=== PATIENT | male | born 1945 | race Caucasian/White ===

== ENCOUNTER 2017-03-29 06:03 | Inpatient (IN) ==
[2017-03-29] MEDS ORDERED: SODIUM CHLORIDE 0.9% 1,000 ML IV STA ×2 (06:15→07:09)
[2017-03-29] MEDS ORDERED: ONDANSETRON 4 MG/2 ML VIAL IV STA (06:15)
[2017-03-29] MEDS ORDERED: ONDANSETRON 4 MG/2 ML VIAL ONE (06:22)
[2017-03-29 06:33] LABS: Basophils % 0.4 % (0.0-0.8); Eosinophils # 0.1 10*3/uL (0.0-0.87); Eosinophils % 0.9 % (0.00-10.9); Hematocrit 52.3 VOL% (42.0-52.0); Hemoglobin 17.5 GM/DL (14.0-18.0); Immature Granulocytes % 0.5 %; Immature Granulocytes Absolute 0.05 #; Lymphocytes # 2.7 10*3/uL (1.4-4.0); Lymphocytes % 26.7 % (21.2-54.2); Mean Corpuscular HGB Conc 33.5 GM/DL (32-36); Mean Corpuscular Hemoglobin 32 PG (27-34); Mean Corpuscular Volume 95.8 FL (87-102); Mean Platelet Volume 10.2 FL (9.6-12.0); Monocytes # 0.6 10*3/uL (0.11-0.8); Monocytes % 5.7 % (1.7-12.7); Neutrophils # 6.6 10*3/uL (1.4-7.4); Neutrophils % 65.8 % (38.7-73.9); Platelet Count 349 T/CUMM (130-400); Red Blood Count 5.46 MC/CUMM (3.8-5.5); Red Cell Distribution Width 12.8 % (9.3-17.3); White Blood Count 10.1 T/CUMM (4-12)
[2017-03-29 06:46] LABS: Albumin 3.5 G/DL (3.4-5.0); Bilirubin,Total 0.4 MG/DL (0.2-1.0); Calcium 9.1 MG/DL (8.5-10.1); Total Protein 6.6 G/DL (6.4-8.3)
[2017-03-29 06:47] LABS: Osmolality,Calculated 285.3 MOS/KG (273-304); Potassium 4.3 MMOL/L (3.5-5.1)
[2017-03-29 07:04] LABS: Lactic Acid 2.4 MMOL/L (0.4-2.0)
[2017-03-29] MEDS ORDERED: LEVOFLOXACIN INJ 750 MG in PREMIX 1 EACH IV STA (07:25)
--- NOTE | 2017-03-29 07:28 | CT Report ---
CT abdomen pelvis w con Indication: Generalized abdominal pain. CT ABDOMEN AND PELVIS WITH CONTRAST DLP: 1262 mGy*cm. One or more of the following dose reduction techniques was used: Automated exposure control, adjustment of the mA and/or kV according the patient size, or use of iterative reconstruction techniques. Comparison: 07/03/2014 Technique: Axial CT images of the abdomen and pelvis were obtained with IV contrast; Omnipaque 350, 100 cc. Oral contrast was not administered. Abdomen: Normal heart size. Bibasilar atelectasis and elevation right hemidiaphragm. Liver, gallbladder and adrenal glands are unremarkable. Pancreas is mostly fatty replaced. Calcified granuloma in the spleen. Spleen is otherwise unremarkable. Cortical defects of both kidneys are present, likely small cysts. No solid masses shown. No retroperitoneal lymphadenopathy. Almost all of the small bowel is slightly edematous appearing with scattered areas of fluid and stool evident. The colon is relatively decompressed but fluid-filled. There is a trace amount of mesenteric edema throughout the abdomen as well as tiny amount of fluid along the left paracolic gutter and in the pelvis. Pelvis: Urinary bladder is contracted. Prostate is absent. Rectosigmoid colon is relatively decompressed but fluid-filled. No lymphadenopathy. No free air. Vascular calcifications noted. No new bone lesions. Impression: 1. Gastroenteritis with edematous appearing small bowel, nondilated, and fluid-filled colon. Minimal reactive inflammation of the mesentery and a trace amount of ascites left pericolic gutter tracking into the pelvis. 2. Stable appearing bilateral renal cysts. PROCEDURE INTERPRETED AT [facility] DEPARTMENT OF RADIOLOGY Final Report Signed by: Juan Merritt M.D.
[2017-03-29] MEDS ORDERED: LEVOFLOXACIN INJ 150 ML IV ONE (07:31)
--- NOTE | 2017-03-29 08:01 | Emergency Department Note ---
Jonathan Steward Brittany, am scribing for, and in the presence of, Jaren Thomas MD 06:17. William Steward Doug C, MD, personally performed the services described in this documentation, ascribed by Suzanne Castillo in my presence, and it is both accurate and complete . Arrival - Arrival Chief Complaint: Nausea/Vomiting/Diarrhea Stated Complaint: abd pain ED Nursing Triage Note: C/O N/V/D/Generalized abd pain. Onset upon waking this morning. Pt denies being around anyone with the same symptoms. Pt was given 2.5mg compazine by EMS with relief of nausea Mode of Arrival: Stretcher Limitations: No Limitations Source: Patient, RN Notes Reviewed Time Seen by Provider: 03/29/17 06:10 - History of Present Illness HPI Narrative: Patient 71-year-old white male presents emergency room complaining of sudden onset of abdominal pain, diarrhea, nausea with vomiting and diaphoresis early this morning. Patient denies any ill contacts. Has not had any fever or chills. Has not had any prior problem with his abdomen. He denies any prior abdominal surgery. Patient states she has not had any blood in his stool or in his vomitus. He told me he became near syncopal after this protracted bout of diarrhea. He states is feeling much better by the time he arrived to the emergency room. Onset (ago): hour(s) (2) Consistency: constant Severity: moderate Severity scale (1-10): 6 Quality: other ("shooting, needlelike pains") Allergies/Adverse Reactions: Allergies Allergy/AdvReac Type Severity Reaction Status Date / Time No Known Allergies Allergy Unverified 03/29/17 06:06 Home Medications: Home Medications Medication Instructions Recorded Confirmed Type Aspirin [Ecotrin] 81 mg PO BEDTIME 11/20/16 03/29/17 History Lisinopril 20 mg PO BEDTIME 11/20/16 03/29/17 History Omeprazole 20 mg PO BEDTIME 11/20/16 03/29/17 History Pravastatin [Pravachol] 1 tablet PO BEDTIME 11/20/16 03/29/17 History Review of System - Review of System 12 point system: reviewed and no additional remarkable complaints except as stated - Review of System Constitutional: Present: diaphoresis. Absent: chills, fever Eyes: Absent: vision change Head/Ears/Nose/Throat: Absent: nasal drainage, sore throat Respiratory: Absent: respiratory distress Cardiovascular: Present: syncope (near syncope). Absent: chest pain, palpitations Gastrointestinal: Present: as per HPI, abdominal pain, nausea, vomiting, diarrhea. Absent: hematemesis, melena, hematochezia Genitourinary male: Absent: urgency, dysuria, frequency Musculoskeletal: Absent: arm pain, back pain, leg pain, neck pain Skin: Absent: rash Neurological: Absent: headache Psychiatric: Absent: anxiety, depression Medical,Surgical,& Family Hx - Medical History Cardio: History of: Hypertension, Cardiovascular Problems Comment Only: Cardiac Dysrhythmia (DR SKELTON NO HEART MED) Psychological: No history of: Psychiatric Problems Neurology: No history of: Neurological Problems Endocrine: History of: Dyslipidemia Rheumatology: No history of;: Rheumatological Problems Respiratory: No history of: Respiratory Problems Genitourinary: History of: Bladder Problem, Prostate Problems (CA), Genitourinary Cancer Gastrointestinal: History of: GERD Musculoskeletal: No history of: Musculoskeletal Problems Reproductive: No histroy: Reproductive Problems - Surgical History Cardiac Surgeries: Patient Denies: Cardiac Surgery Thoracic Surgeries: Patient denies;: Kidney (Renal Surgery) HEENT Surgeries: Surgical HX of: Tonsilectomy & Adenoidectomy Abdominal Surgeries: Surgical HX of: Abdominal Surgery, Colonoscopy, EGD Reproductive Surgeries: Surgical HX of;: Cystoscopy, Genitourinary Surgery, Prostate Surgery (REMOVAL RADIATION) Orthopedic Surgeries: Patient denies;: Orthopedic Surgery - Family History Family History: Reports;: Family Heart Disease (DAD), Family Hypertension (DAD) - Social History Smoking Status: Never smoker Frequency of Alcohol Use: None Type of Drug Use: None Exam Vital Signs: Vital Signs Temperature 97.8 F 03/29/17 06:03 Pulse Rate 51 L 03/29/17 07:30 Respiratory Rate 18 03/29/17 07:30 Blood Pressure 116/60 03/29/17 07:30 O2 Sat by Pulse Oximetry 100 03/29/17 07:30 - General General appearance: alert, in no apparent distress - Head Head exam: Present: atraumatic, normocephalic, normal inspection - Eye Eye exam: Present: normal appearance, PERRL, EOMI - ENT ENT exam: Present: normal exam, normal oropharynx - Neck Neck exam: Present: normal inspection, full ROM, trachea midline - Chest Chest inspection: Present: normal inspection, symmetric chest wall rise - Respiratory Respiratory exam: Present: normal lung sounds bilaterally. Absent: rales, rhonchi, wheezes - Cardiovascular Cardiovascular exam: Present: regular rate, normal rhythm, normal heart sounds. Absent: murmur, rubs, gallop - Abdominal Exam Abdominal exam: Present: soft, tenderness (mild diffuse direct tenderness to palpation), normal bowel sounds. Absent: distention - Extremities Exam Extremities exam: Present: normal inspection - Back Exam Back exam: Present: normal inspection - Neurological Exam Neurological exam: Present: alert, oriented X3, CN II-XII intact. Absent: motor sensory deficit - Psychiatric Psychiatric exam: Present: normal affect, normal mood - Skin Skin exam: Present: warm, dry, intact Course Course Narrative: Patient's clinical presentation, laboratory radiograph findings were discussed with Dr. Vlad LEON who will see the patient emergency room and determine final disposition. Cultures and IV antibiotics were begun. Results - Labs CBC & BMP: 03/29/17 06:09 03/29/17 06:09 Lab Results: I have reviewed the patients labs Labs: Laboratory Tests 03/29/17 06:09 WBC 10.1 RBC 5.46 Hgb 17.5 Hct 52.3 H MCV 95.8 MCH 32 MCHC 33.5 RDW 12.8 Plt Count 349 MPV 10.2 Neut % (Auto) 65.8 Lymph % (Auto) 26.7 [place] % (Auto) 5.7 Eos % (Auto) 0.9 Baso % (Auto) 0.4 Neut # (Auto) 6.6 Lymph # (Auto) 2.7 [place] # (Auto) 0.6 Eos # (Auto) 0.1 Baso # (Auto) 0.0 Immature Gran % 0.5 Nucleated RBC % 0.0 Immature Gran # 0.05 Nucleated RBCs # 0.00 Laboratory Tests 03/29/17 06:09 C-Reactive Protein 0.41 H Laboratory Tests 03/29/17 03/29/17 06:09 06:09 Sodium 141 Potassium 4.3 Chloride 106 Carbon Dioxide 26 Anion Gap 13.3 BUN 19 H Creatinine 1.30 GFR Calculation 65 BUN/Creatinine Ratio 14.00 Glucose 158 H Calculated Osmolality 285.3 Lactic Acid 2.4 H Calcium 9.1 Total Bilirubin 0.40 AST 23 ALT 41 Alkaline Phosphatase 56 Total Protein 6.6 Albumin 3.5 Globulin 3.1 Albumin/Globulin Ratio 1.1 Lipase 94.0 - Diagnostic Findings Procedure: CT Abdomen and Pelvis: report reviewed by me (1. Gastroenteritis with edematous appearing small bowel, nondilated, and fluid-filled colon. Minimal reactive inflammation of the mesentery and a trace amount of ascites left pericolic gutter tracking into the pelvis. 2. Stable appearing renal cysts. ) Disposition Clinical Impression: Gastroenteritis Case discussed with: patient, patient's family Disposition: Still a Patient Condition: Stable Time of Disposition: 08:00
--- NOTE | 2017-03-29 08:13 | EKG Report ---
Stationary ECG Study [facility] ER Test Date: 03/29/2017 6:39:14 AM Pat Name: NISHANT MATHIS Department: Room: Gender: M Redipper: : 1945 Requested by: Santos Chou Order Number: [id number] Reading MD: FRANSISCO CHATMAN Intervals [place] Rate: 49 P: 52 DC: 170 QRS: 80 QRSD: 86 T: 9 QT: 454 QTc: 424 Interpretive Statements SINUS BRADYCARDIA NONSPECIFIC T-WAVE ABNORMALITY Electronically Signed On 03-29-17 08:17:18 CDT by FRANSISCO CHATMAN [email or web address]
[2017-03-29 08:19] LABS: Apearance,Urine CLEAR (Clear); Bilirubin,Urine Negative (Negative); Blood, Urine Negative (Negative); Glucose,Urine (UA) Negative (Negative); Hyaline Casts,Urine 1 /LPF (0-3); Ketones,Urine Negative (Negative); Mucus,Urine Occasional /LPF (Occasional); Nitrite,Urine Negative (Negative); Protein,Urine Negative; RBC,Urine <1 /HPF (0-4); Squamous Epithelial Cell,Urine Occasional /HPF (0-10); Urine Color Yellow (Yellow); Urine Specific Gravity 1.044 (1.001-1.035); Urine Urobilinogen < 2.0 EU/DL (0.2-1.0); WBC,Urine 1 /HPF (0-6)
[2017-03-29] MEDS ORDERED: ONDANSETRON 4 MG/2 ML VIAL IV PRN (08:54)
[2017-03-29] MEDS ORDERED: MORPHINE 2 MG/1 ML SYRINGE IV PRN (08:54)
--- NOTE | 2017-03-29 10:06 | General Surg History&Physical ---
Assessment and Plan - Time spent with patient Time spent with patient: Greater than 30 minutes (1) Gastroenteritis Status: Acute Assessment and plan: I think this is unlikely to represent a surgical acute abdomen. He seems to be better already. We will treat him with IV antibiotics and fluids and I will consult gastroenterology. He does not know of anything that he ate that could have caused this and has not recently traveled. Current Visit: Yes (2) Lactic acid acidosis Status: Acute Assessment and plan: This was initially elevated. I do not suspect ischemic bowel and his superior mesenteric artery looks wide open on the CT scan. He is also improving. We will follow-up this result which is probably from volume depletion. Current Visit: Yes History of Present Illness Chief complaint: Abdominal pain History of present illness: Mr. Sharma is a 71 year old male Who was awakened during the night with nausea and vomiting and explosive diarrhea. He did not notice his abdominal pain is much until after he had nausea and vomiting. His pain in his abdomen was mild to moderate and in the epigastric region just above the umbilicus. This pain was intermittent but has remained constant at the point that he presented to the emergency department. When he came to the emergency department he was hypotensive and diaphoretic and dizzy. He has received IV fluid and feels much better. He has minimal abdominal pain at this point. His blood pressure has not normalized. He did have an elevated lactic acid level. An abdominal CT scan showed fluid-filled edematous small bowel and colon. Please note that this note is a late entry he and I actually saw the patient a couple of hours ago. Home Medications Medication Instructions Recorded Confirmed Type Aspirin [Ecotrin] 81 mg PO BEDTIME 11/20/16 03/29/17 History Lisinopril 20 mg PO BEDTIME 11/20/16 03/29/17 History Omeprazole 20 mg PO BEDTIME 11/20/16 03/29/17 History Pravastatin [Pravachol] 1 tablet PO BEDTIME 11/20/16 03/29/17 History Allergies Allergy/AdvReac Type Severity Reaction Status Date / Time No Known Allergies Allergy Unverified 03/29/17 06:06 Medical,Surgical,& Family Hx - Medical History Cardio: History of: Hypertension, Cardiovascular Problems Comment Only: Cardiac Dysrhythmia (DR SKELTON NO HEART MED) Psychological: No history of: Psychiatric Problems Neurology: No history of: Neurological Problems Endocrine: History of: Dyslipidemia Rheumatology: No history of;: Rheumatological Problems Respiratory: No history of: Respiratory Problems Genitourinary: History of: Bladder Problem, Prostate Problems (CA), Genitourinary Cancer Gastrointestinal: History of: GERD Musculoskeletal: No history of: Musculoskeletal Problems Reproductive: No histroy: Reproductive Problems - Surgical History Cardiac Surgeries: Patient Denies: Cardiac Surgery Thoracic Surgeries: Patient denies;: Kidney (Renal Surgery) HEENT Surgeries: Surgical HX of: Tonsilectomy & Adenoidectomy Abdominal Surgeries: Surgical HX of: Abdominal Surgery, Colonoscopy, EGD Reproductive Surgeries: Surgical HX of;: Cystoscopy, Genitourinary Surgery, Prostate Surgery (REMOVAL RADIATION) Orthopedic Surgeries: Patient denies;: Orthopedic Surgery - Family History Family History: Reports;: Family Heart Disease (DAD), Family Hypertension (DAD) - Social History Smoking Status: Never smoker Frequency of Alcohol Use: None Type of Drug Use: None Exam - Constitutional Vitals: Period Temp Pulse Resp BP Sys/Sullivan Pulse Ox Last 24 Hr 97.8 F-97.9 F 51-73 16-20 101-124/47-64 95-100 General appearance: no acute distress - Head Head exam: Present: normocephalic - Eye Eye exam: Present: EOMI. Absent: scleral icterus Pupils: Present: VICKY - ENT Mouth exam: Present: normal voice - Neck Neck exam: Present: trachea midline - Respiratory Respiratory exam: Present: clear to auscultation bilaterally. Absent: accessory muscle use - Cardiovascular Cardiovascular exam: Present: RRR - GI/Abdominal GI/Abdominal exam: Present: soft. Absent: distended, guarding, mass, tenderness , rebound - Extremities Exam Extremities exam: Present: full ROM. Absent: edema - Back Exam Back exam: Present: normal inspection - Neurological Exam Neurological exam: Present: alert, oriented X3. Absent: motor sensory deficit Speech: Present: normal - Skin Skin exam: Present: normal color - Constitutional Constitutional: Present: anorexia, chills. Absent: fever(s) - EENT Nose, mouth and throat: Absent: dysphagia, sore throat - Cardiovascular Cardiovascular: Present: diaphoresis. Absent: chest pain at rest, chest pain with activity, dyspnea, dyspnea on exertion, syncope - Respiratory Respiratory: Absent: cough, dyspnea, hemoptysis, dyspnea on exertion - Gastrointestinal Gastrointestinal: Present: abdominal pain, bloating, cramping, diarrhea, nausea , vomiting. Absent: hematemesis, hematochezia, melena, jaundice - Genitourinary Genitourinary: Present: flank pain. Absent: dysuria, hematuria - Musculoskeletal Musculoskeletal: Absent: back pain - Neurological Neurological: Absent: focal weakness, syncope - Endocrine Endocrine: Absent: polyuria Hematologic/Lymphatic: Absent: easy bleeding, easy bruising Results - Labs CBC & BMP: 03/29/17 06:09 03/29/17 06:09 Lab Results: I have reviewed the past 24 hour labs - Diagnostic Findings Procedure: CT Abdomen and Pelvis: image reviewed by me, report reviewed by me
[2017-03-29] MEDS: LEVOFLOXACIN INJ 750 MG in PREMIX 1 EACH IV SCH (10:30)
[2017-03-29] MEDS: DEXTROSE 5% NACL 0.45% 1,000 ML IV SCH ×2 (10:59→19:24)
[2017-03-29] MEDS: PANTOPRAZOLE 40 MG TABLET PO SCH (11:01)
--- NOTE | 2017-03-29 13:11 | Gastrointestinal Consult Note ---
Assessment and Plan (1) Gastroenteritis Status: Acute Assessment and plan: The patient's symptoms seem to be most consistent with a gastroenteritis which is acute. Perhaps this is been brought on by the watermelon that he consumed. It is unclear. We will await any stool studies that can be done in the near future. Supportive care is likely all that is required for this gentleman. I do not believe he is going to require surgery. His white count is not particularly elevated. This may simply be a virus. The patient has had recent colonoscopy/flexible sigmoidoscopy as of 06/2015. He has never been shown to have any polyps but did have some rectal telangiectasias on his last flex sig. The treatment is essentially supportive at this point. We will continue to watch him and I will advance his diet to clear liquids and see how he tolerates this. He may be able to leave tomorrow if his laboratories look all right and he is feeling better and able tolerate clears. Current Visit: Yes (2) Lactic acid acidosis Status: Acute Assessment and plan: I am not sure if the patient developed some element of mesenteric ischemia but this appears to have improved over time. No specific therapy required. Agree with IV fluid therapy Current Visit: Yes (3) Colon cancer screening Status: Acute Assessment and plan: The patient has a maternal grandfather with a history of colon cancer in the patient's father himself had a history of polyps. This puts him in line to have his next colonoscopy done in June 2019. No colonoscopy is needed at this time. Current Visit: Yes History of Present Illness Chief complaint: Gastroenteritis with nausea vomiting and diarrhea History of present illness: Mr. Sharma is a 71 year old male who presents with ingestion of a pizza and watermelon yesterday for supper, his did not have this problem and ate the pizza but not watermelon. He was awakened at 3 AM this morning with explosive diarrhea and severe abdominal pain that started as a pins and needle sensation in the epigastrium and then moved to the periumbilical region with bloating. This was 10 out of 10 in intensity and resulted in some diaphoresis hypotension and dizziness. This was documented in the emergency room. The patient was given fluids. He was noted on admission to have a elevated lactic acid level 2.4, but surprisingly a normal white blood cell count of 10.0. This pain was severe enough to warrant admission under the surgical service for an acute abdomen. This is since greatly dissipated to the point where the patient's pain is about a 6 out of 10 intensity located in the periumbilical region. This is getting better quickly and the patient is now requesting clear liquid diet. CT scan done of the abdomen does show some edematous small bowel and a fluid-filled colon. There is a slight amount of ascites surrounding the small bowel. Over the intervening hours the patient has done a great deal better. He does not admit any unusual foods like sushi, raw oysters, or steak tar tar. He has not had any recent travel he drinks city water. He does not have any unusual pets. He is actually doing quite well this time. Dr. Aviles had previously scoped this patient as recently as 06/27/14 due to a family history of colon polyps and colon cancer as well as some change in his bowel habits at that time, colonoscopy at that time was essentially normal. A follow-up second flexible sigmoidoscopy was performed on 07/06/15 due to new onset of rectal bleeding at that time and that demonstrated rectal telangiectasias--consistent with radiation treatment of the patient's prostate cancer. Patient's maternal grandfather had a history of colon cancer patient's father had a history of colon polyps. He will need repeat colonoscopy in 5 years from his last done in June 2014 i.e. June 2019. Home Medications Medication Instructions Recorded Confirmed Type Aspirin [Ecotrin] 81 mg PO BEDTIME 11/20/16 03/29/17 History Lisinopril 20 mg PO BEDTIME 11/20/16 03/29/17 History Omeprazole 20 mg PO BEDTIME 11/20/16 03/29/17 History Pravastatin [Pravachol] 1 tablet PO BEDTIME 11/20/16 03/29/17 History Allergies Allergy/AdvReac Type Severity Reaction Status Date / Time No Known Allergies Allergy Unverified 03/29/17 06:06 Medical,Surgical,& Family Hx - Medical History Cardio: History of: Hypertension, Cardiovascular Problems Comment Only: Cardiac Dysrhythmia (DR SKELTON NO HEART MED) Psychological: No history of: Psychiatric Problems Neurology: No history of: Neurological Problems HEENT: Comment Only: Glaucoma (States he has pre glaucoma) Endocrine: History of: Dyslipidemia Rheumatology: No history of;: Rheumatological Problems Respiratory: No history of: Respiratory Problems Genitourinary: History of: Bladder Problem, Prostate Problems (CA), Genitourinary Cancer Gastrointestinal: History of: GERD Musculoskeletal: No history of: Musculoskeletal Problems Reproductive: No histroy: Reproductive Problems - Surgical History Cardiac Surgeries: Patient Denies: Cardiac Surgery Thoracic Surgeries: Patient denies;: Kidney (Renal Surgery) Neurologic Surgeries: Patient denies: Neurologic Surgery HEENT Surgeries: Surgical HX of: Tonsilectomy & Adenoidectomy Abdominal Surgeries: Surgical HX of: Abdominal Surgery, Colonoscopy, EGD Reproductive Surgeries: Surgical HX of;: Cystoscopy, Genitourinary Surgery, Prostate Surgery (REMOVAL RADIATION) Orthopedic Surgeries: Patient denies;: Orthopedic Surgery - Family History Family History: Reports;: Family Cancer (DAD), Family Heart Disease (DAD), Family Hypertension (DAD), Family Psychiatric Problems (Mom, alzheimers) - Social History Smoking Status: Never smoker Frequency of Alcohol Use: None Type of Drug Use: None Review of systems: Constitutional: Denies fever, chills, positive for nausea, and vomiting as well as diarrhea. Eyes: Denies dry eyes, and scleral icterus HENT: Denies headaches Cardiovascular: Denies acute chest pain and claudication Respiratory: Denies shortness of breath, wheezing, and difficulty breathing, denies cough Gastrointestinal: As noted in the HPI Genitourinary: Denies dysuria and hematuria Neurologic: Denies vision loss, and loss of sensation Musculoskeletal: Denies joint swelling, joint stiffness, and muscular weakness Psychiatric: Denies depression and kike symptoms Heme-Lymph: Denies easy bruising, lymph node enlargement or tenderness, night sweats, excessive bleeding Allergies-immunologic: Denies pruritus and rhinorrhea Exam - Constitutional Vitals: Period Temp Pulse Resp BP Sys/Sullivan Pulse Ox Last 24 Hr 97.3 F-97.9 F 51-73 16-20 99-124/47-64 95-100 Exam: Constitutional: Well-developed, well-nourished, alert, and in no acute distress Head and face: Head: Normocephalic atraumatic Eyes: Conjunctiva without injection, no gross scleral icterus, pupils equal and round bilaterally Ears: Intact to conversation in both ears Nose: External appearance is normal, nares patent Mouth: Oral mucous membranes moist without erythema dentition noted to be without erosion Neck: Normal appearance, no masses or tenderness, trachea midline Thyroid: Gland midline and appropriate size for age Respiratory: Normal respiratory effort, clear to auscultation without wheezes, rhonchi or rales Cardiovascular: Regular rate and rhythm, normal S1, S2, the exam is without rubs, murmurs or gallops. Gastrointestinal: Abdomen is mildly distended to palpation with increased tympany, normal active bowel sounds, tone normal without rigidity or guarding, no masses present, no hepatomegaly, no spleen tip felt. Rectal exam showed good tone no external fissures or fistulas stool is present brown and guaiac negative, small internal hemorrhoids are palpated.. Lymphatic: Neck without adenopathy, axilla without lymphadenopathy present Musculoskeletal: Right and left lower extremities without evidence of edema Skin and subcutaneous tissue: No rashes or ulcerations noted, normal skin turgor, digits and nails without clubbing/cyanosis/deformities. Neurologic: The patient is grossly oriented to person place and time, cranial nerves show tongue movements are normal with normal tongue extrusion midline, light touch sensation is intact. Psychiatric: No hallucinations or delusions are present, does not appear depressed Results - Labs CBC & BMP: 03/29/17 06:09 03/29/17 06:09
[2017-03-29] MEDS ORDERED: PRAVASTATIN 20 MG TABLET PO SCH (21:00)
[2017-03-29] MEDS ORDERED: ASPIRIN EC 81 MG TABLET PO SCH (21:00)
[2017-03-29] MEDS ORDERED: PANTOPRAZOLE 40 MG TABLET PO SCH (21:00)
[2017-03-29] MEDS ORDERED: LISINOPRIL 20 MG TABLET PO SCH (21:00)
[2017-03-30] MEDS ORDERED: ENOXAPARIN 40 MG/0.4 ML SYRINGE SUBCUT SCH (02:57)
[2017-03-30] MEDS: DEXTROSE 5% NACL 0.45% 1,000 ML IV SCH ×2 (03:02→13:45)
[2017-03-30 07:27] LABS: Basophils % 0.4 % (0.0-0.8); Eosinophils # 0.2 10*3/uL (0.0-0.87); Eosinophils % 1.9 % (0.00-10.9); Hematocrit 39.8 VOL% (42.0-52.0); Hemoglobin 13.7 GM/DL (14.0-18.0); Immature Granulocytes % 0.5 %; Immature Granulocytes Absolute 0.04 #; Lymphocytes # 2.3 10*3/uL (1.4-4.0); Mean Corpuscular HGB Conc 34.4 GM/DL (32-36); Mean Corpuscular Hemoglobin 33 PG (27-34); Mean Corpuscular Volume 94.3 FL (87-102); Mean Platelet Volume 10.2 FL (9.6-12.0); Monocytes # 0.5 10*3/uL (0.11-0.8); Monocytes % 6.2 % (1.7-12.7); Neutrophils # 4.8 10*3/uL (1.4-7.4); Platelet Count 228 T/CUMM (130-400); Red Blood Count 4.22 MC/CUMM (3.8-5.5); Red Cell Distribution Width 12.9 % (9.3-17.3); White Blood Count 7.8 T/CUMM (4-12)
--- NOTE | 2017-03-30 09:24 | General Surgery Progress Note ---
Assessment and Plan (1) Gastroenteritis Status: Acute Assessment and plan: I think this is unlikely to represent a surgical acute abdomen. He seems to be better already. We will treat him with IV antibiotics and fluids and I will consult gastroenterology. He does not know of anything that he ate that could have caused this and has not recently traveled. 03/30: He feels better and really feels back to normal. He is not having any further diarrhea. His vital signs are stable. His white blood cell count is normal and his lactic acid level has returned to normal. The etiology of this episode is not entirely clear. I did notice that he is on an LEOPOLDO inhibitor and there are reports of cases of angioedema edema of the bowel associated with LEOPOLDO inhibitors. He has been on the lisinopril he thinks for several years and has never had a problem before. Current Visit: Yes (2) Lactic acid acidosis Status: Acute Assessment and plan: This was initially elevated. I do not suspect ischemic bowel and his superior mesenteric artery looks wide open on the CT scan. He is also improving. We will follow-up this result which is probably from volume depletion. Current Visit: Yes Subjective Patient reports: Present: feels better, tolerating liquids well. Absent: still having pain, diarrhea, nausea, vomiting, fever Exam - Constitutional Vitals: Period Temp Pulse Resp BP Sys/Sullivan Pulse Ox Last 24 Hr 97.0 F-97.9 F 52-69 16-20 99-123/51-82 95-99 General appearance: no acute distress - Head Head exam: Present: normocephalic - Eye Eye exam: Absent: scleral icterus - Respiratory Respiratory exam: Absent: accessory muscle use - GI/Abdominal GI/Abdominal exam: Present: soft. Absent: distended, guarding, tenderness, rebound Results - Labs CBC & BMP: 03/30/17 07:06 03/29/17 06:09 Lab Results: I have reviewed the past 24 hour labs
[2017-03-30] MEDS: LEVOFLOXACIN INJ 750 MG in PREMIX 1 EACH IV SCH (09:48)
[2017-03-30] MEDS: PANTOPRAZOLE 40 MG TABLET PO SCH (09:49)
[2017-03-30 11:59] VITALS: BP 132/72
--- NOTE | 2017-03-30 13:08 | Discharge Summary ---
Hospital Course - Hospital Course Hospital Course: The patient is a 71-year-old male who presented with nausea vomiting and severe diarrhea. Abdominal CT demonstrated fluid filled within the small bowel and colon. He was managed for IV hydration and monitoring as he had signs of volume depletion with symptomatic hypotension as well as an elevated lactic acid. His lactic acid decreased to normal level, and his symptoms improved with IV hydration. Patient's tolerating liquids and then brat diet without difficulty. Ultimately was determined he would likely had a significant gastroenteritis versus food poisoning. He was discharged home in good condition with her clinician of a lactose-free diet as well as for Q and PPI daily. Patient is to follow with Dr. Cast in [address] Chu on an as- needed basis of 30 surgical indications. Diagnosis - Discharge Diagnosis (1) Gastroenteritis Status: Acute Specialty Discharge - Follow Up or Referrals Follow up with: Dae Chu III., MD [Physician] - (as needed) Tello Salinas MD [Physician] - 05/11/17 11:00 am (6 weeks) Discharge Plan - Discharge Data Disposition: Disch To Home/Self Care Condition at Discharge: Stable Discharge Diet: other (see below) Activity: resume usual activities as tolerated Contact your physician if you experience:: fever over 101, Difficulty voiding, Nausea/Vomiting - Discharge Medications New Pantoprazole Tab [Protonix Tab] 40 mg PO DAILY #30 tablet Continue Aspirin [Ecotrin] 81 mg PO BEDTIME Lisinopril 20 mg PO BEDTIME Pravastatin [Pravachol] 1 tablet PO BEDTIME Omeprazole 20 mg PO BEDTIME - Follow Up or Referral Follow Up: Dae Chu III., MD [Physician] - (as needed) Tello Salinas MD [Physician] - 05/11/17 11:00 am (6 weeks) - Forms/Instructions Instructions: Lactose-Controlled Diet (GEN), Gastroenteritis (DC) Additional Discharge Instructions: -Lactose-free diet x 2 weeks. -Continue Fernanda-Q per Dr. Salinas instructions. -repeat colonoscopy Jun 2019. -F/u Dr. Salinas 6 weeks Exam - Constitutional Vitals: Period Temp Pulse Resp BP Sys/Sullivan Pulse Ox Last 24 Hr 97.0 F-97.7 F 53-69 16-20 116-132/51-82 95-99 General appearance: no acute distress - Head Head exam: Present: normal inspection, normocephalic - Eye Eye exam: Absent: conjunctival injection, scleral icterus - Respiratory Respiratory exam: Present: clear to auscultation bilaterally - Cardiovascular Cardiovascular exam: Present: regular rate and rhythm - GI/Abdominal GI/Abdominal exam: Present: normal bowel sounds, soft. Absent: tenderness - Neurological Exam Neurological exam: Present: alert, oriented X3 - Skin Skin exam: Present: normal color, warm Discharge Results Procedures and tests throughout hospitalization: Pending Orders 03/29/17 07:58 Blood Culture Stat 03/29/17 14:40 Stool Culture Stat Occult blood negative C. diff negative Stool Cultures no enteric pathogens @ 12 hrs; final results pending Labs on day of discharge: Labs from last 24 hours 03/30/17 03/30/17 07:18 07:06 WBC 7.8 RBC 4.22 D Hgb 13.7 L D Hct 39.8 L MCV 94.3 MCH 33 MCHC 34.4 RDW 12.9 Plt Count 228 D MPV 10.2 Neut % (Auto) 62.0 Lymph % (Auto) 29.0 [place] % (Auto) 6.2 Eos % (Auto) 1.9 Baso % (Auto) 0.4 Neut # (Auto) 4.8 Lymph # (Auto) 2.3 [place] # (Auto) 0.5 Eos # (Auto) 0.2 Baso # (Auto) 0.0 Immature Gran % 0.5 Nucleated RBC % 0.0 Immature Gran # 0.04 Nucleated RBCs # 0.00 Lactic Acid 1.6 Preliminary micro results at discharge 03/29/17 14:40 Stool Culture - Preliminary Stool No enteric pathogens at 12 hrs 03/29/17 07:58 Blood Culture - Preliminary Blood No growth at 1 day 03/29/17 07:33 Blood Culture - Preliminary Blood No growth at 1 day - Imaging and Cardiology Procedure: CT Abdomen and Pelvis: image reviewed by me, report reviewed by me DS: Provider Date of admission: 03/29/17 08:54 Primary care physician: . No PCP Attending physician on admission: Dae Chu III., Consults: 03/29/17 10:31 Consult to Physician [CONS] Routine Comment: GASTROENTERITSIS Consulting Provider: Tello Salinas Person Notified: DR SALINAS Date Notified: 03/29/17 Time Notified: 10:26 Discharging clinician: Paige Euceda PA-C
--- NOTE | 2017-03-30 14:57 | Gastrointestinal Progress Note ---
Assessment and Plan (1) Gastroenteritis Status: Acute Assessment and plan: The patient's symptoms seem to be most consistent with a gastroenteritis which is acute. Perhaps this is been brought on by the watermelon that he consumed. It is unclear. We will await any stool studies that can be done in the near future. Supportive care is likely all that is required for this gentleman. I do not believe he is going to require surgery. His white count is not particularly elevated. This may simply be a virus. The patient has had recent colonoscopy/flexible sigmoidoscopy as of 06/2015. He has never been shown to have any polyps but did have some rectal telangiectasias on his last flex sig. The treatment is essentially supportive at this point. We will continue to watch him and I will advance his diet to clear liquids and see how he tolerates this. He may be able to leave tomorrow if his laboratories look all right and he is feeling better and able tolerate clears. 03/30/17--patient appears to be doing better now. No gross evidence of C. difficile or enteric pathogens on stool studies. This still may be secondary to food poisoning. I think it be highly unusual for the patient to have angioedema of the bowel as a source for his bloating. This seems like a fairly standard gastroenteritis to me however it is unusual to see a lactic acid level to this degree. I have written the patient to get some Fernanda-Q which is a probiotic which she can take on a daily basis to see if this helps him with his bloating sensation and mild diarrhea. He can continue taking the Protonix prior to suppertime for best effect. I have advocated that he stay off of lactose-containing foods for the next week to 2 weeks. Current Visit: Yes (2) Lactic acid acidosis Status: Acute Assessment and plan: I am not sure if the patient developed some element of mesenteric ischemia but this appears to have improved over time. No specific therapy required. Agree with IV fluid therapy 03/30/17--Lactic acid repeat level was normal today. I believe the patient's observation is complete he can certainly be discharged home to follow-up again if this recurs. If he comes in with similar symptoms would consider getting a repeat lactic acid level and repeat CT scan. We will follow him up in the office in 6 weeks just to make sure that he is doing adequately. Current Visit: Yes (3) Colon cancer screening Status: Acute Assessment and plan: The patient has a maternal grandfather with a history of colon cancer in the patient's father himself had a history of polyps. This puts him in line to have his next colonoscopy done in June 2019. No colonoscopy is needed at this time. 03/30/17--repeat colonoscopy in June 2019 as mentioned above. He is safe to discharge from my standpoint with a prescription provided on the front of the chart--Fernanda-Q 1 p.o. daily for 30 days along with pantoprazole 40 mg p.o. prior to suppertime each night. Current Visit: Yes Gastroenterology - PN: Subj Interval history: The patient is no longer having as severe abdominal pain as he was yesterday. He is able to eat, but needs to be on a low lactose diet for the next week to 2 weeks. I am not sure if this is at all related to his lisinopril use, we have seen episodes of angioedema involving the bowel but he has been on this medication for some years without difficulty. He can certainly stop the lisinopril and see what happens. In the meantime, will write him for some probiotics to see if this helps out. Exam (Progress Note) - Constitutional Vitals: Period Temp Pulse Resp BP Sys/Sullivan Pulse Ox Last 24 Hr 97.0 F-97.7 F 53-69 16-20 116-132/51-82 95-99 General appearance: mild distress - Head Head exam: Present: normocephalic - Eye Eye exam: Present: EOMI - Respiratory Respiratory exam: Present: clear to auscultation bilaterally. Absent: rhonchi, stridor, wheezes - Cardiovascular Cardiovascular exam: Present: regular rate and rhythm - GI/Abdominal GI/Abdominal exam: Present: normal bowel sounds, distended, tenderness (Patient has a bandlike tenderness to his lower abdomen around the level of the umbilicus which hurts on deep palpation.), soft. Absent: guarding - Extremities Exam Extremities exam: Absent: edema - Neurological Exam Neurological exam: Present: alert, oriented X3 - Psychiatric Psychiatric exam: Present: normal affect, normal mood - Skin Skin exam: Present: normal color. Absent: urticaria Results - Labs CBC & BMP: 03/30/17 07:06 03/29/17 06:09 Specialty Discharge - Follow Up or Referrals Follow up with: Vlad,Bill III.MD [Physician] - (as needed)
== END 2017-03-30 15:53 | disposition home or self-care (01) | DRG 392 ==
LOC: EDUNIT# → N.ED 06:03 → N.EDINP 08:54 → N.3E 10:11
PROVIDERS: ADMIT Surgery; ATTEND Surgery

== ENCOUNTER 2017-09-16 11:17 | Inpatient (IN) ==
[2017-09-16] MEDS ORDERED: ONDANSETRON 4 MG/2 ML VIAL IV STA (11:45)
[2017-09-16] MEDS ORDERED: SODIUM CHLORIDE 0.9% 1,000 ML IV STA ×2 (11:45→14:20)
[2017-09-16] MEDS ORDERED: ONDANSETRON 4 MG/2 ML VIAL ONE (11:46)
[2017-09-16] MEDS ORDERED: HYDROmorphone 2 MG/1 ML VIAL IV STA (11:50)
[2017-09-16 12:00] LABS: Basophils # 0.1 10*3/uL (0.0-0.2); Basophils % 0.3 % (0.0-0.8); Eosinophils # 0.1 10*3/uL (0.0-0.87); Eosinophils % 0.3 % (0.00-10.9); Hematocrit 55.3 VOL% (42.0-52.0); Hemoglobin 19.1 GM/DL (14.0-18.0); Immature Granulocytes % 0.5 %; Lymphocytes # 1.7 10*3/uL (1.4-4.0); Lymphocytes % 9.1 % (21.2-54.2); Mean Corpuscular HGB Conc 34.5 GM/DL (32-36); Mean Corpuscular Hemoglobin 32 PG (27-34); Mean Corpuscular Volume 93.6 FL (87-102); Mean Platelet Volume 10.7 FL (9.6-12.0); Monocytes # 0.8 10*3/uL (0.11-0.8); Monocytes % 4.1 % (1.7-12.7); Neutrophils # 15.9 10*3/uL (1.4-7.4); Neutrophils % 85.7 % (38.7-73.9); Platelet Count 319 T/CUMM (130-400); Red Blood Count 5.91 MC/CUMM (3.8-5.5); Red Cell Distribution Width 12.9 % (9.3-17.3); White Blood Count 18.6 T/CUMM (4-12)
[2017-09-16 12:32] LABS: Alanine Aminotransferase 39 U/L (16-61); Albumin 3.5 G/DL (3.4-5.0); Alkaline Phosphatase 54 U/L (45-117); Amylase 65 U/L (25-115); Aspartate Amino Transferase 17 U/L (0-37); Blood Urea Nitrogen 19 MG/DL (7-18); Calcium 9.7 MG/DL (8.5-10.1); Glucose 126 MG/DL (74-106); Lactic Acid 3.1 MMOL/L (0.4-2.0); Osmolality,Calculated 282.4 MOS/KG (273-304); Potassium 4.1 MMOL/L (3.5-5.1); Sodium 140 MMOL/L (136-145); Total Protein 7.3 G/DL (6.4-8.3); Troponin I Only < 0.015 NG/ML (0.00-0.045)
[2017-09-16 14:40] LABS: Apearance,Urine CLEAR (Clear); Bilirubin,Urine Negative (Negative); Blood, Urine Negative (Negative); Calcium Oxalate Crystals,Urine Occasional /HPF (Few); Glucose,Urine (UA) Negative (Negative); Ketones,Urine Negative (Negative); Mucus,Urine Few /LPF (Occasional); Nitrite,Urine Negative (Negative); Protein,Urine Negative; RBC,Urine 3 /HPF (0-4); Squamous Epithelial Cell,Urine Occasional /HPF (0-10); Urine Color Yellow (Yellow); Urine Specific Gravity > 1.060 (1.001-1.035); Urine Urobilinogen < 2.0 EU/DL (0.2-1.0); WBC,Urine 2 /HPF (0-6)
[2017-09-16] MEDS ORDERED: SODIUM CHLORIDE 0.9% 650 ML IV ONE (16:12)
[2017-09-16] MEDS ORDERED: CIPROFLOXACIN INJ 400 MG in PREMIX 1 EACH IV SCH (17:00)
[2017-09-16] MEDS ORDERED: metroNIDAZOLE 500 MG/100 ML PREMIX IV ONE (18:17)
[2017-09-16] MEDS: metroNIDAZOLE INJ 500 MG in PREMIX 1 EACH IV SCH (18:31)
[2017-09-16] MEDS ORDERED: ASPIRIN EC 81 MG TABLET PO SCH (21:00)
[2017-09-16] MEDS: SODIUM CHLORIDE 0.9% 1,000 ML IV SCH (22:01)
[2017-09-16] MEDS: MEROPENEM 1,000 MG in SYRINGE 1 EACH IV SCH (22:02)
[2017-09-16] MEDS: PRAVASTATIN 20 MG TABLET PO SCH (22:02)
[2017-09-17] MEDS: metroNIDAZOLE INJ 500 MG in PREMIX 1 EACH IV SCH ×2 (01:54→09:10)
[2017-09-17] MEDS: MEROPENEM 1,000 MG in SYRINGE 1 EACH IV SCH ×3 (04:16→21:48)
[2017-09-17 06:59] LABS: Basophils % 0.4 % (0.0-0.8); Eosinophils # 0.2 10*3/uL (0.0-0.87); Eosinophils % 2.1 % (0.00-10.9); Hematocrit 41.8 VOL% (42.0-52.0); Hemoglobin 13.9 GM/DL (14.0-18.0); Immature Granulocytes % 0.3 %; Immature Granulocytes Absolute 0.03 #; Lymphocytes % 21.1 % (21.2-54.2); Mean Corpuscular HGB Conc 33.3 GM/DL (32-36); Mean Corpuscular Hemoglobin 32 PG (27-34); Mean Corpuscular Volume 94.8 FL (87-102); Mean Platelet Volume 10.4 FL (9.6-12.0); Monocytes # 0.6 10*3/uL (0.11-0.8); Neutrophils # 6.6 10*3/uL (1.4-7.4); Neutrophils % 70.1 % (38.7-73.9); Platelet Count 235 T/CUMM (130-400); Red Blood Count 4.41 MC/CUMM (3.8-5.5); Red Cell Distribution Width 13.2 % (9.3-17.3); White Blood Count 9.5 T/CUMM (4-12)
[2017-09-17 07:28] LABS: Calcium 8.2 MG/DL (8.5-10.1); Osmolality,Calculated 283.1 MOS/KG (273-304); Potassium 4.2 MMOL/L (3.5-5.1)
[2017-09-17] MEDS: BISACODYL 5 MG TABLET PO SCH ×2 (13:03→21:53)
[2017-09-17] MEDS: SODIUM CHLORIDE 0.9% 1,000 ML IV SCH (13:03)
[2017-09-17] MEDS: ONDANSETRON 4 MG/2 ML VIAL IV PRN ×2 (16:40→23:06)
[2017-09-17] MEDS ORDERED: POLYETHYLENE GLYCOL POWDER 255 GM BOTTLE PO ONE (17:00)
[2017-09-17] MEDS ORDERED: MAGNESIUM CITRATE 300 ML BOTTLE PO ONE (21:00)
[2017-09-17] MEDS: PRAVASTATIN 20 MG TABLET PO SCH (21:54)
[2017-09-18] MEDS: SODIUM CHLORIDE 0.9% 1,000 ML IV SCH (03:41)
[2017-09-18] MEDS: MEROPENEM 1,000 MG in SYRINGE 1 EACH IV SCH ×2 (05:15→14:22)
[2017-09-18] MEDS: BISACODYL 5 MG TABLET PO SCH (05:19)
[2017-09-18 06:41] LABS: Basophils % 0.4 % (0.0-0.8); Eosinophils # 0.2 10*3/uL (0.0-0.87); Hematocrit 42.7 VOL% (42.0-52.0); Hemoglobin 14.4 GM/DL (14.0-18.0); Immature Granulocytes % 0.4 %; Immature Granulocytes Absolute 0.04 #; Lymphocytes # 2.1 10*3/uL (1.4-4.0); Lymphocytes % 22.4 % (21.2-54.2); Mean Corpuscular HGB Conc 33.7 GM/DL (32-36); Mean Corpuscular Hemoglobin 32 PG (27-34); Mean Corpuscular Volume 94.9 FL (87-102); Mean Platelet Volume 10.8 FL (9.6-12.0); Monocytes # 0.7 10*3/uL (0.11-0.8); Monocytes % 7.3 % (1.7-12.7); Neutrophils # 6.4 10*3/uL (1.4-7.4); Neutrophils % 67.5 % (38.7-73.9); Platelet Count 205 T/CUMM (130-400); White Blood Count 9.5 T/CUMM (4-12)
[2017-09-18 07:11] LABS: Calcium 8.3 MG/DL (8.5-10.1); Osmolality,Calculated 283.8 MOS/KG (273-304); Potassium 4.1 MMOL/L (3.5-5.1)
[2017-09-18] MEDS: ONDANSETRON 4 MG/2 ML VIAL IV PRN (07:29)
[2017-09-18] MEDS ORDERED: ONDANSETRON 4 MG/2 ML VIAL ONE (07:30)
[2017-09-18] MEDS ORDERED: LIDOCAINE 2% 5 ML VIAL ONE (07:35)
[2017-09-18] MEDS ORDERED: PROPOFOL 200 MG/20 ML VIAL IV ONE (07:35)
[2017-09-18 12:06] VITALS: BP 139/83
== END 2017-09-18 14:28 | disposition home or self-care (01) | DRG 641 ==
LOC: EDUNIT# → EDBD → N.ED 11:17 → N.EDINP 15:17 → N.2E 19:47
PROVIDERS: ADMIT Internal Medicine; ATTEND Internal Medicine
PROC: COLONBX (2017-09-18 07:05)